=== PATIENT | male | born 1965 | race Caucasian/White ===

== ENCOUNTER 2025-01-25 07:41 | Outpatient (CLI) | payer BC | END 2025-01-25 07:42 | disposition home or self-care (01) | LOC: CSHULT 07:41 | PROVIDERS: ATTEND Internal Medicine Hematology & Oncology | DX: D45 Polycythemia vera (principal); D50.8 Other iron deficiency anemias; R16.1 Splenomegaly, not elsewhere classified | CPT/HCPCS: 76705 ==